=== PATIENT | male | born 1950 | race American Indian/Alaskan Native ===

== ENCOUNTER 2020-08-03 14:38 | Outpatient (CLI) | payer OTHER | END 2020-08-03 14:52 | disposition home or self-care (01) | LOC: RAD 14:38 | DX: M79.641 Pain in right hand (principal); M79.642 Pain in left hand ==

== ENCOUNTER 2020-11-01 15:14 | Outpatient (CLI) | payer OTHER | END 2020-11-01 15:28 | disposition home or self-care (01) | LOC: RAD 15:14 | PROVIDERS: ATTEND Internal Medicine Rheumatology | DX: M43.16 Spondylolisthesis, lumbar region (principal); M54.2 Cervicalgia ==

== ENCOUNTER 2021-11-26 10:56 | Outpatient (CLI) | payer OTHER | END 2021-11-26 11:06 | disposition home or self-care (01) | LOC: RAD 10:56 | PROVIDERS: ATTEND Orthopaedic Surgery Adult Reconstructive Orthopaedic Surgery | DX: M17.0 Bilateral primary osteoarthritis of knee (principal) ==

== ENCOUNTER 2022-05-14 07:57 | Outpatient (CLI) | payer OTHER | END 2022-05-14 08:00 | disposition home or self-care (01) | LOC: TOM 07:57 | DX: K42.9 Umbilical hernia without obstruction or gangrene (principal) ==

== ENCOUNTER 2022-12-03 09:22 | Outpatient (CLI) | payer OTHER | END 2022-12-03 09:38 | disposition home or self-care (01) | LOC: RAD 09:22 | DX: J94.8 Other specified pleural conditions (principal); J92.9 Pleural plaque without asbestos ==

== ENCOUNTER → 2023-01-03 | Outpatient (CLI) | payer OTHER | END | disposition home or self-care (01) | LOC: TOM 12:48 | DX: Z77.090 Contact with and (suspected) exposure to asbestos (principal); J44.9 Chronic obstructive pulmonary disease, unspecified; J47.9 Bronchiectasis, uncomplicated ==

== ENCOUNTER 2024-01-16 11:28 | Outpatient (CLI) | payer OTHER | END 2024-01-16 11:48 | disposition home or self-care (01) | LOC: TOM 11:28 | DX: Z77.090 Contact with and (suspected) exposure to asbestos (principal); J44.9 Chronic obstructive pulmonary disease, unspecified; J47.9 Bronchiectasis, uncomplicated ==

== ENCOUNTER 2024-07-29 10:03 | Outpatient (CLI) | payer OTHER | END 2024-07-29 10:11 | disposition home or self-care (01) | LOC: RAD 10:03 | DX: M17.0 Bilateral primary osteoarthritis of knee (principal) ==

== ENCOUNTER 2024-08-05 14:05 | Outpatient (CLI) | payer OTHER | END 2024-08-05 14:13 | disposition home or self-care (01) | LOC: RAD 14:05 | PROVIDERS: ATTEND Internal Medicine Cardiovascular Disease | DX: M79.672 Pain in left foot (principal); M19.90 Unspecified osteoarthritis, unspecified site ==

== ENCOUNTER 2024-09-15 07:34 | Outpatient (CLI) | payer OTHER | END 2024-09-15 07:37 | disposition home or self-care (01) | LOC: SONOGRAMA 07:34 | PROVIDERS: ATTEND Internal Medicine | DX: K64.4 Residual hemorrhoidal skin tags (principal) ==

== ENCOUNTER 2025-02-01 12:36 | Outpatient (CLI) | payer OTHER | END 2025-02-01 12:45 | disposition home or self-care (01) | LOC: RAD 12:36 | PROVIDERS: ATTEND Internal Medicine | DX: S22.32XA Fracture of one rib, left side, initial encounter for closed fracture (principal) ==

== ENCOUNTER 2025-02-23 09:13 | Outpatient (CLI) | payer OTHER | END 2025-02-23 09:14 | disposition home or self-care (01) | LOC: NUCLEAR 09:13 | PROVIDERS: ATTEND Internal Medicine | DX: M85.871 Other specified disorders of bone density and structure, right ankle and foot (principal); M81.0 Age-related osteoporosis without current pathological fracture ==